=== PATIENT | female | born 1990 | race Caucasian/White ===

== ENCOUNTER 2017-08-06 22:10 | Emergency (ER) | payer OTHER ==
[~2017-08-06] VITALS: Ht 177.8 cm; Wt 126.1 kg
[2017-08-06] MEDS ORDERED: PRENATAL FORMU1 EAC4 PO (22:22)
[2017-08-06 22:30] LABS: URINE BILIRUBIN NEGATIVE (Negative); URINE BLOOD 3+ (Negative); URINE CLARITY CLEAR; URINE COLOR YELLOW; URINE GLUCOSE-RANDOM NEGATIVE (Negative); URINE KETONES TRACE (Negative); URINE LEUKOCYTES-REFLEX NEGATIVE (Negative); URINE NITRITE-REFLEX NEGATIVE (Negative); URINE PROTEIN TRACE (Negative); URINE UROBILINOGEN 0.2 E.U./dl (0.2-1.0)
[2017-08-06 22:41] LABS: ABSOLUTE BASOPHILS 0.1 thou/uL (0.0-0.2); ABSOLUTE EOSINOPHILS 0.3 thou/uL (0.0-0.7); ABSOLUTE LYMPHOCYTES 2.1 thou/uL (0.8-5.3); ABSOLUTE MONOCYTES 1.1 thou/uL (0.0-1.2); ABSOLUTE NEUTROPHILS 6.7 thou/uL (1.6-8.1); BASOPHILS 1.3 %; EOSINOPHILS 2.4 %; HEMATOCRIT 41.2 % (37.0-47.0); HEMOGLOBIN 13.3 gm/dL (12.0-15.0); MCH 31.1 pg (26.0-34.0); MCHC 32.3 g/dL (28.0-37.0); MCV 96.1 fL (80.0-100.0); MONOCYTES 11.2 %; MPV 8.2 fl. (7.2-11.1); NUCLEATED RBCS 0 /100WBC; PLATELET COUNT* 312 thou/uL (150-400); POLYS 65.1 %; RBC 4.29 mil/uL (4.20-5.00); RDW-CV 13.5 % (10.5-14.5); WBC 10.3 thou/uL (4.0-11.0)
[2017-08-06 22:45] LABS: MUCUS 0-3 Light strn/LPF (None Seen); SQUAMOUS >10 Many /LPF (0-3); URINE RBC >20 Many /HPF (0-2)
[2017-08-06 22:47] LABS: CASTS None Seen /LPF (None Seen)
[2017-08-06 22:48] LABS: CRYSTALS None Seen /LPF (None Seen); URINE WBC-REFLEX 0-5 Rare /HPF (0-5)
[2017-08-06 22:50] LABS: CALCIUM 9.1 mg/dL (8.5-10.1); CREATININE 0.8 mg/dL (0.6-1.3); POTASSIUM 3.8 mmol/L (3.5-5.1)
[2017-08-06 22:55] LABS: ALBUMIN 3.7 g/dL (3.4-5.0); TOTAL BILIRUBIN 0.2 mg/dL (<0.1-1.0); TOTAL PROTEIN 8.4 g/dL (6.4-8.2)
[2017-08-07 00:15] VITALS: BP 130/80
== END 2017-08-07 00:15 | disposition home or self-care (01) ==
LOC: M.ERS 22:10
PROVIDERS: Nurse Practitioner Family
DX: O20.0 Threatened abortion (principal); Z3A.01 Less than 8 weeks gestation of pregnancy; Z88.0 Allergy status to penicillin; Z88.6 Allergy status to analgesic agent